=== PATIENT | female | born 1950 | race Caucasian/White ===

== ENCOUNTER 2024-12-26 09:59 | Outpatient (CLI) | payer MEDICARE, MEDICAID ==
--- NOTE | 2024-12-26 13:02 | RADIOLOGY REPORT ---
TRANSABDOMINAL PELVIC ULTRASOUND CLINICAL HISTORY: PROLAPSE URETHERAL MUCOSA TECHNIQUE: Multiple grayscale ultrasound images were obtained of the pelvis via transabdominal appro ach. Limited color Doppler and spectral Doppler acquisitions were also obtained. COMPARISON: None FINDINGS: Uterus: Prior hysterectomy. Right adnexa: Not visualized. No right adnexal mass seen. Left adnexa: Not visualized No left adnexal mass seen. Other: Prevoid volume of the urinary bladder is 242 mL. Postvoid volume is 61 mL. IMPRESSION: 1. Prior hysterectomy. 2. Ovaries are not visualized. 3. Urinary bladder appears unremarkable.
== END 2024-12-26 23:59 | disposition home or self-care (01) ==
LOC: RAD 09:59
PROVIDERS: ATTEND Family Medicine
DX: N36.8 Other specified disorders of urethra (principal); Z90.710 Acquired absence of both cervix and uterus
CPT/HCPCS: 76857